=== PATIENT | male | born 1955 | race Caucasian/White ===

== ENCOUNTER 2017-10-13 07:23 | Day surgery (SDC) | payer BC ==
[~2017-10-13 07:23] MED LIST: Ketorolac 30 MG/ML SDV ONE; Lactated Ringers 1,000 ML IV SCH; Lidocaine 2% 5 ML SDV ONE; Midazolam 1 MG/ML 2 ML SDV ONE; Ondansetron 4 MG/2 ML SDV ONE; Propofol 200 MG/20 ML SDV ONE; Sodium Chloride 0.9% 10 ML Syringe FLUSH PRN; Sodium Chloride 0.9% 2.5 ML Syringe FLUSH PRN; fentaNYL 250 MCG/5 ML SDV ONE
[2017-10-13] MEDS ORDERED: Bupivacaine 0.5% 10 ML SDV ONE (07:24)
[2017-10-13] MEDS ORDERED: Bupivacaine 25%/EPINEPHrine/PF 30 ML ONE (07:26)
--- NOTE | 2017-10-13 07:42 | PCM.PREANE ---
Preanesthetic Assessment - Anesthesia/Transfusion/Family Hx Anesthesia History: Prior Anesthesia Without Reaction Transfusion History: No Prior Transfusion(s) - Review of Systems General: No Symptoms Pulmonary: No Symptoms Cardiovascular: No Symptoms Gastrointestinal: No Symptoms Neurological: No Symptoms Other: Reports: None - Physical Assessment NPO Status Date: 10/12/17 NPO Status Time: 22:00 Height: 6 ft Weight: 124.738 kg ASA Class: 3 Mental Status: Alert & Oriented x3 Airway Class: Mallampati = 2 Dentition: Reports: Normal Dentition Thyro-Mental Finger Breadths: 3 Mouth Opening Finger Breadths: 3 ROM/Head Extension: Full Lungs: Clear to Auscultation, Normal Respiratory Effort Cardiovascular: Regular Rate, Regular Rhythm - Allergies Allergies/Adverse Reactions: Allergies Allergy/AdvReac Type Severity Reaction Status Date / Time No Known Allergies Allergy Verified 10/12/17 09:06 - Anesthesia Plan Free Text/Narrative:: Recent chest pain work-up was completed. 02/2017 - Myocardial Perfusion Study - shows mild decreased perfusion along the inferior wall. 04/2017 - Echo - EF 55%, aortic valve essentially normal, unchanged from 2012 comparison. - Acknowledgements Anesthesia Type Planned: General Anesthesia, Regional Block (Interscalene Block) Pt an Appropriate Candidate for the Planned Anesthesia: Yes Alternatives and Risks of Anesthesia Discussed w Pt/Guardian: Yes Pt/Guardian Understands and Agrees with Anesthesia Plan: Yes PreAnesthesia Questionnaire HEENT History: Reports: Other (See Below) Other HEENT History: bottom partial, wears glasses Cardiovascular History: Reports: Hypertension Other Cardiovascular History: not taking meds at this time Respiratory History: Reports: None Gastrointestinal History: Reports: None Genitourinary History: Reports: None Musculoskeletal History: Reports: Neck Pain, Chronic Neurological History: Reports: None Psychiatric History: Reports: None Endocrine/Metabolic History: Reports: Obesity/BMI 30+ Hematologic History: Reports: None Immunologic History: Reports: None Oncologic (Cancer) History: Reports: None Dermatologic History: Reports: None - Infectious Disease History Infectious Disease History: Reports: Hepatitis A, Hepatitis C - Past Surgical History Head Surgeries/Procedures: Reports: None Neurological Surgical History: Reports: C-Spine Other Neurological Surgeries/Procedures: neck surgery x2 - SUBSTANCE USE Smoking Status *Q: Former Smoker Days Per Week of Alcohol Use: 7 Number of Drinks Per Day: 3 Total Drinks Per Week: 21 Recreational Drug Use History: No Recreational Drug Type: Reports: Other (see below) - HOME MEDS Home Medications: Home Meds Aspirin [Meigs Aspirin] 81 mg PO DAILY 10/12/17 [History] - CURRENT (IN HOUSE) MEDS Current Meds: Current Medications Lactated Ringer's (Ringers, Lactated) 1,000 mls @ 125 mls/hr IV ASDIRECTED SHARONA Lactated Ringer's (Ringers, Lactated) 1,000 mls @ 125 mls/hr IV ASDIRECTED SHARONA Sodium Chloride (Saline Flush) 10 ml FLUSH ASDIRECTED PRN PRN Reason: Keep Vein Open Sodium Chloride (Saline Flush) 2.5 ml FLUSH ASDIRECTED PRN PRN Reason: Keep Vein Open Discontinued Medications Bupivacaine HCl (Sensorcaine-Mpf 0.5%) Confirm Administered Dose 20 ml .ROUTE .STK-MED ONE Stop: 10/13/17 07:25 Fentanyl (Sublimaze) Confirm Administered Dose 250 mcg .ROUTE .STK-MED ONE Stop: 10/13/17 07:13 Bupivacaine HCl/Epinephrine Bitart (Sensorc Mpf 0.25%-Epi [id number]) Confirm Administered Dose 30 mls @ as directed .ROUTE .STK-MED ONE Stop: 10/13/17 07:27 Ketorolac Tromethamine (Toradol) Confirm Administered Dose 30 mg .ROUTE .STK- MED ONE Stop: 10/13/17 07:14 Lidocaine (Xylocaine-Mpf 2%) Confirm Administered Dose 10 ml .ROUTE .STK-MED ONE Stop: 10/13/17 07:13 Midazolam HCl (Versed 1 Mg/Ml) Confirm Administered Dose 2 mg .ROUTE .STK-MED ONE Stop: 10/13/17 07:13 Ondansetron HCl (Zofran) Confirm Administered Dose 4 mg .ROUTE .STK-MED ONE Stop: 10/13/17 07:14 Propofol (Diprivan 20 Ml) Confirm Administered Dose 400 mg .ROUTE .STK-MED ONE Stop: 10/13/17 07:13
[2017-10-13] MEDS ORDERED: Sodium Chloride 0.9% 2.5 ML Syringe FLUSH PRN (08:03)
[2017-10-13] MEDS ORDERED: Sodium Chloride 0.9% 10 ML Syringe FLUSH PRN (08:03)
[2017-10-13] MEDS ORDERED: ceFAZolin 2 GM in Premix Bag 1 BAG IV ONE (08:30)
[2017-10-13] MEDS ORDERED: ePHEDrine 50 MG/ML SDV ONE (08:31)
[2017-10-13] MEDS ORDERED: Phenylephrine/Normal Saline 100 MCG/ML 10 ML Syringe ONE (08:31)
[2017-10-13] MEDS ORDERED: HYDROmorphone 2 MG/ML SDV ONE (09:11)
--- NOTE | 2017-10-13 09:23 | PCM.SN ---
- Free Text/Narrative Note: Procedure Note - Interscalene Block Procedure was explained to patient including the risks and benefits; bleeding, infection, incomplete block, failed block, respiratory distress, and etc. The patient understands and wishes to proceed at this time. Pts head was positioned looking to the Rt. The left neck was palpated and marking pen was used to identify structures. Using sterile technique, betadine swabs x 3 were used to prep the Left side of the patient neck. Versed 2mg IV and Fentanyl 50mcg IV were given before starting the procedure. Nerve stimulator was set to 1mA and 2Hz, needle was introduced and I was only able to obtain deltoid muscle response, nerve stimulator was dialed down to 0.2mA, weak twitch was still noted. 40mL was slowly injected, aspirating every 5mL of injection. 0.5% Bupivacaine 20mL and 0.25% Bupivacaine with 1:200,000 Epi 20mL were used. Pt tolerated the procedure well. No complications were noted.
[2017-10-13] MEDS ORDERED: Propofol 200 MG/20 ML SDV ONE ×2 (09:36→10:20)
[2017-10-13] MEDS ORDERED: Acetaminophen/HYDROcodone 325-10 MG Tab PO PRN (10:42)
[2017-10-13] MEDS ORDERED: Ketorolac 10 MG Tab PO PRN (10:42)
--- NOTE | 2017-10-13 10:58 | PCM.OPNOTE ---
- General Post-Op/Procedure Note Date of Surgery/Procedure: 10/13/17 Operative Procedure(s): Left shoulder arthroscopy with SAD, debridement of anterior labrum, and RTCR Post-Op Diagnosis: L shoulder impingement, degenerative anterior labral tear, and RTCR Anesthesia Technique: General ET Tube, Regional Block Primary Surgeon: June Chavez Saxophone Teacher: Maricarmen Oates Saxophone Teacher: Kayden Beaulieu EBL in mLs: 10 Condition: Good Free Text/Narrative:: #[id number]
[2017-10-13] MEDS: HYDROmorphone 2 MG/ML SDV IVPUSH ONE ×2 (11:34→11:45)
[2017-10-13] MEDS: fentaNYL 100 MCG/2 ML SDV IVPUSH PRN ×2 (11:55→12:01)
--- NOTE | 2017-10-13 12:08 | PCM.POSTAN ---
POST ANESTHESIA ASSESSMENT - MENTAL STATUS Mental Status: Alert, Oriented - RESPIRATORY Respiratory Status: Respiratory Rate WNL, Airway Patent, O2 Saturation Stable - CARDIOVASCULAR CV Status: Pulse Rate WNL, Blood Pressure Stable - GASTROINTESTINAL GI Status: No Symptoms - POST OP HYDRATION Hydration Status: Adequate & Stable
[2017-10-13] MEDS ORDERED: Albuterol/Ipratropium 3.0-0.5 MG/3 ML Neb Soln NEB ONE (12:32)
--- NOTE | 2017-10-13 14:27 | PCM48HPAN ---
Post Anesthesia Note - EVALUATION WITHIN 48HRS OF ANESTHETIC Vital Signs in Normal Range: Yes Patient Participated in Evaluation: Yes Respiratory Function Stable: Yes Airway Patent: Yes Cardiovascular Function Stable: Yes Hydration Status Stable: Yes Pain Control Satisfactory: Yes Nausea and Vomiting Control Satisfactory: Yes Mental Status Recovered: Yes Resp Rate: 8 - COMMENTS/OBSERVATIONS Free Text/Narrative:: no anesthesia problems
--- NOTE | 2017-10-14 08:43 | OR ---
SURGEON: June Chavez MD DATE OF PROCEDURE: 10/13/2017 PREOPERATIVE DIAGNOSES: 1. Left shoulder impingement syndrome. 2. Left anterior glenoid fracture. 3. Left biceps tendinopathy. 4. Left rotator cuff tear. POSTOPERATIVE DIAGNOSES: 1. Left shoulder impingement syndrome. 2. Left anterior glenoid fracture. 3. Left biceps tendinopathy. 4. Left rotator cuff tear. PROCEDURES: Left shoulder arthroscopy with: 1. Subacromial decompression with release of coracoacromial ligament and acromioplasty. 2. Extensive debridement including debridement of degenerative anterior labral tear and removal of small anterior glenoid fragment with biceps tenotomy. 3. Arthroscopic rotator cuff repair. ASSISTANTS: Maricarmen Oates PA-C and Kayden Beaulieu MD, PGY3. ANESTHESIA: General with interscalene block. ESTIMATED BLOOD LOSS: 10 mL. TOURNIQUET TIME: 0 minutes. COMPLICATIONS: None. DVT PROPHYLAXIS: PAS boots to bilateral lower extremities. IMPLANTS USED: Biomet 2.9 mm JuggerKnot soft anchor x2, and Quattro Link 4.5 mm PEEK Knotless anchor. BRIEF HISTORY: Nelia is a 62-year-old male, who sustained an injury to his left shoulder. An MRI did confirm a nearly full-thickness tear of the rotator cuff along with a small inferior glenoid fracture. Due to his lack of response to conservative treatment, I did recommend surgical intervention. The risks and goals of procedure were discussed with the patient and were documented preoperatively. He agreed to proceed. DESCRIPTION OF PROCEDURE: The patient was properly identified and brought to the operating room. He was transferred from the OR cart and placed on operating table in a supine position. An interscalene block had been administered preoperatively. After adequate anesthesia had been obtained, the patient was placed in a beach-chair position. Care was taken to pad all bony prominences. His head was secured. The left upper extremity was then prepped in standard fashion using ChloraPrep solution. It was then sterilely draped. A time-out was performed to ensure correct site and procedure. Preoperative antibiotics were given. The surgical site had been marked preoperatively. A marking pen was used to identify the bony landmarks. Approximately 30 mL of normal saline was introduced into the glenohumeral joint. A posterior portal was established. Blunt trocar and cannula were introduced into the glenohumeral joint. Camera, inflow, and outflow were assembled. He had extensive synovitis in the rotator interval. An anterior portal was established. The subscapularis was visualized and probed and found to be intact. He had some degenerative fraying superiorly; however, overall the tendon was intact. No loose bodies were appreciated in the subscapular recess. He had extensive degenerative fraying of the anterior labrum. At the 8 o'clock position, a small fragment measuring approximately 5 mm x 3 mm from the glenoid was visualized. This had no attachment to the glenoid with minimal soft tissue and labral attachment. Electrocautery was used to remove the remaining attachment, and the fragment was removed without difficulty. A shaver was used to gently debride the remainder of the degenerative labral tear. The remainder appeared intact. The biceps tendon was then visualized. An extensive synovitis along the course of the tendon and at the attachment onto the superior labrum. The biceps was pulled into the joint and longitudinal tearing was noted distally as well. I elected to proceed with biceps tenotomy. This was performed with electrocautery. The biceps tendon retracted easily into the bicipital tendon sheath. His attachment site was then smoothed. The posterior labrum showed minor degenerative changes. Both the glenoid and the humeral head showed evidence of diffuse grade 2 chondromalacia. There was a small area of grade 3 chondromalacia along the superior aspect of the humeral head. The axillary pouch showed synovitis; however, no loose bodies were appreciated. The arm was then brought into an abducted and externally rotated position. The bare area was noted posteriorly. As I progressed anteriorly, there appeared to be a nearly full-thickness tear. The fibers appeared somewhat attached; however, the tear appeared to be nearly full thickness. The instruments were then removed from the glenohumeral joint. Blunt trocar and cannula were introduced into the subacromial space. A lateral portal was then established. Camera, inflow, and outflow were assembled. A shaver was then introduced into the lateral portal. An extensive bursectomy was performed. He had a significant amount of hemorrhagic bursal tissue present within the subacromial space. Coracoacromial ligament was released along the undersurface of the acromion. A type 2 acromion was noted, which seemed to be causing impingement on the underlying rotator cuff. A 5.0 mm gordon was then used to perform an acromioplasty. This provided good decompression of the subacromial space. The rotator cuff was then inspected. The anterior portion of the cuff had a few remaining fibers, which appeared quite thin with probing. This was the site of the tear that was noted intra-articularly. Electrocautery was used to complete the tear. The lateral tissue appeared quite thin; however, the remainder of the cuff tissue appeared robust. A cuff grasper was used and I was able to easily pull the cuff back over to the bony footprint. The 5.0 mm gordon was then used to roughen the bone just lateral to the articular surface. Two 2.9 mm JuggerKnot anchors were then placed just lateral to the articular margin. Sutures were passed through the cuff tissue and these were tied down. This provided good reapproximation of the cuff to the footprint. I elected to proceed with a lateral row to give further compression of the cuff to the bone. A 4.5 mm Quattro Link Knotless anchor was then placed incorporating the sutures from the JuggerKnot anchors. This provided further compression of the cuff tissue to the bone. It was inserted without difficulty. The repair was probed at the completion, and it was felt that there was a good compression of the cuff tissue to the bone. The repair appeared to be nearly watertight. The instruments were then removed from the shoulder. The portal sites were closed with 3-0 nylon. Xeroform gauze was placed over the wound, and a bulky dressing was applied. He was placed into a shoulder immobilizer. He was awakened from his anesthetic and transferred back to the operating room cart. He was brought to recovery room in stable condition. All needle and sponge counts were correct. MARILIN / BRANDON /[id number]
== END 2017-10-13 14:05 | disposition home or self-care (01) ==
LOC: MW.SDS 07:23
PROVIDERS: ATTEND Orthopaedic Surgery
DX: S42.142A Displaced fracture of glenoid cavity of scapula, left shoulder, initial encounter for closed fracture (principal); S46.012A Strain of muscle(s) and tendon(s) of the rotator cuff of left shoulder, initial encounter; M75.42 Impingement syndrome of left shoulder; F41.9 Anxiety disorder, unspecified; J44.9 Chronic obstructive pulmonary disease, unspecified; E78.5 Hyperlipidemia, unspecified; I10 Essential (primary) hypertension; E66.9 Obesity, unspecified; Z87.891 Personal history of nicotine dependence; Z68.37 Body mass index [BMI] 37.0-37.9, adult; W19.XXXA Unspecified fall, initial encounter; Z79.82 Long term (current) use of aspirin; Z79.899 Other long term (current) drug therapy
CPT/HCPCS: 29823; 29826; 29827; 64415; 94640; C1713; J1170; J1885; J2250; J2405; J3010; J7120; 01630; 88304; J2704

== ENCOUNTER 2017-11-02 22:17 | Emergency (ER) | payer BC ==
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
--- NOTE | 2017-11-03 08:26 | CR ---
EXAM DATE: 11/02/17 PATIENT'S AGE: 62 Patient: JOESPH SIDHU Facility: [place], [place] Site . Site : [id number] Study: XRay Shoulder Left [id number] 10:54:51 PM Ordering Physician: Bere Solorio Final Report: Indication: Pain Technique: Four views left shoulder Comparison: August 25, 2017 Findings: Bones: Alignment is normal. Again seen is cortical irregularity of the inferior aspect of the left glenoid. There is a surgical anchor in the left humeral head. Joint spaces: Minimal degenerative changes in the left glenohumeral joint. Soft tissues: Unremarkable. Status post ORIF lower cervical spine. A screw projects over the thoracic inlet. Impression: 1. Stable cortical irregularity of the inferior aspect of the left glenoid. Consider left shoulder CT or MRI for further evaluation. 2. A screw projects over the thoracic inlet. This may be related to ORIF hardware in the lower cervical spine. Consider chest CT for further evaluation of exact location. Dictated by Litzy Sidhu MD @ Nov 02 2017 11:04PM (Electronic Signature) Report Signed by Proxy. SADA
== END 2017-11-02 23:16 ==
LOC: MW.ED 22:17
DX: M25.512 Pain in left shoulder (principal); Z87.891 Personal history of nicotine dependence; V89.2XXA Person injured in unspecified motor-vehicle accident, traffic, initial encounter; Y92.410 Unspecified street and highway as the place of occurrence of the external cause
CPT/HCPCS: 73030-26-LT; 73030-LT; 82962; 99283